=== PATIENT | female | born 1995 | race African-American/Black ===

== ENCOUNTER 2022-08-03 21:43 | Emergency (ER) | payer SELFPAY ==
[~2022-08-03] VITALS: Ht 165.1 cm; Wt 77.0 kg
[2022-08-03 21:46] VITALS: BP 152/98
[2022-08-03] MEDS ORDERED: BACITRACIN ZINC OINT UDPKT TOP ONE (22:30)
[2022-08-03] MEDS ORDERED: ACETAMINOPHEN 325MG TABLET PO ONE (22:30)
[2022-08-03] MEDS ORDERED: TETANUS, DIPHTHERIA, PERTUSSIS VAC/PF 0.5ML (>10YR OLD) IM ONE (22:30)
[2022-08-03] MEDS ORDERED: LIDOCAINE HCL 1% 20ML VIAL (Pyxis) INJ INFIL ONE (22:30)
[2022-08-03] MEDS ORDERED: BO1 TP (23:26)
[2022-08-03] MEDS ORDERED: CEPH500C2 MT (23:26)
== END 2022-08-04 00:43 | disposition home or self-care (01) ==
LOC: ER 21:43
DX: S61.412A Laceration without foreign body of left hand, initial encounter (principal); W26.0XXA Contact with knife, initial encounter; Y93.89 Activity, other specified; Y92.488 Other paved roadways as the place of occurrence of the external cause
CPT/HCPCS: 12002; 90471; 90715; 99283